=== PATIENT | female | born 1960 | race Caucasian/White ===

== ENCOUNTER 2020-08-25 07:36 | Day surgery (SDC) | payer OTHER ==
[2020-08-22 12:02] VITALS: BMI 23.4
[2020-08-25] MEDS ORDERED: PROPOFOL 20 ML ONE ×3 (07:47)
[2020-08-25] MEDS ORDERED: LIDOCAINE HCL/PF 2% SDV 5ML VIAL ONE (07:47)
[2020-08-25 09:47] VITALS: BP 122/76; PULSE 69; TEMP 98
== END 2020-08-25 09:47 | disposition home or self-care (01) ==
LOC: FASU-ENDO 07:36
PROVIDERS: ATTEND Internal Medicine Gastroenterology
PROC: 0DJD8ZZ Inspection of Lower Intestinal Tract, Via Natural or Artificial Opening Endoscopic (ICD-10-PCS; principal; 2020-08-25 08:22)
DX: Z12.11 Encounter for screening for malignant neoplasm of colon (principal); Z80.0 Family history of malignant neoplasm of digestive organs; K57.30 Diverticulosis of large intestine without perforation or abscess without bleeding